=== PATIENT | male | born 1935 | race Caucasian/White ===

== ENCOUNTER 2016-09-14 08:48 | Outpatient (CLI) | payer OTHER ==
[~2016-09-14 08:48] MED LIST: ECOTRIN LOW STR81 MG PO; GLUCOSAMINE1500 COM PO; MSM1500 MG PO; MULTIPLE VITAMIN PO; OMEGA 3340 MG PO; PLAVIX75 MG PO; SIMVASTATIN20 MG PO; TOPROL XL50 MG PO; VITAMIN B12500 MCG PO; VITAMIN D-32000 UNIT PO
--- NOTE | 2016-09-14 11:19 | DIAGNOSTIC IMAGING REPORT ---
PROCEDURE: US ART LOW EXT WITH LYNDSEY-RIGHT INDICATION: Right leg popliteal artery aneurysm, fem-pop bypass graft follow-up. TECHNIQUE: Color Doppler duplex imaging of the right lower extremity arterial system was performed. Resting ABIs were acquired. COMPARISON: 07/29/2014 FINDINGS: ABIs: Resting posterior tibial: 1.2. Resting dorsalis pedis: 1.1. VESSELS/ WAVEFORMS: Triphasic arterial inflow and triphasic flow through the mid superficial femoral artery. Triphasic flow at the ankle. The distal anastomosis of the graft is immediately adjacent to the popliteal artery aneurysm. There is high velocity, biphasic arterial flow at the distal anastomoses and normal velocity, monophasic flow in the popliteal artery and distal to the anastomosis. Partially thrombosed popliteal artery aneurysm measures approximately 5.0 x 5.1 cm in AP and transverse diameter. There is eccentric retrograde biphasic arterial flow within the lumen. The posterior tibial artery in the midcalf is occluded. A prominent collateral with triphasic arterial flow velocity of 32 cm/sec is seen adjacent. PEAK SYSTOLIC VELOCITIES: External iliac: 76 cm/second. Common femoral artery: 53 cm/second. Profunda femoral artery: 30 cm/second. Proximal superficial femoral artery: 61 cm/second. Mid superficial femoral artery: 75 cm/second. Mid to distal SFA just proximal to the graft: 101 cm/sec Proximal anastomosis: 114 cm/sec Proximal graft: 103 cm/sec Mid graft: 110 cm/sec Distal graft: 133 cm/sec Distal anastomosis: 425 cm/sec Popliteal distal to the anastomosis: 119 cm/sec Proximal posterior tibial artery: Occluded, collateral present. Proximal anterior tibial artery 33 cm/sec Peroneal artery: Not seen Distal posterior tibial artery: Reconstituted. 68 cm/second. Dorsalis pedis artery: 69 cm/second. IMPRESSION: 1. Stenotic distal anastomosis of the fem-pop bypass graft. 2. Distal anastomotic stenosis is likely resulting in retrograde biphasic arterial flow within the [place] popliteal artery aneurysm lumen. There has been interval increase in size of partially thrombosed popliteal aneurysm. 3. Distal anastomotic stenosis does not appear to be hemodynamically significant as there is adequate, triphasic arterial two-vessel runoff to the foot. Resting ABIs are normal. 4. 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 This is new since the prior study.
== END 2016-09-14 23:00 ==
LOC: US SRH 08:48
DX: T82.858A Stenosis of other vascular prosthetic devices, implants and grafts, initial encounter (principal); I77.1 Stricture of artery

== ENCOUNTER 2016-10-06 09:58 | Outpatient (CLI) | payer OTHER ==
--- NOTE | 2016-10-06 13:12 | DIAGNOSTIC IMAGING REPORT ---
PROCEDURE: US ART LOW EXT WITH LYNDSEY-RIGHT INDICATION: Fem-pop bypass graft surveillance. TECHNIQUE: Preexercise ABIs were performed. Color Doppler duplex imaging of the right lower extremity was performed. COMPARISON: Arterial duplex ultrasound 09/14/2016. FINDINGS: ABIs: Resting ABIs: Posterior tibial 1.3 and dorsalis pedis 1.3. VESSELS: There is normal triphasic wave form from the common femoral artery to the mid to distal superficial femoral artery Partially thrombosed popliteal artery aneurysm is unchanged and measures 5.1 x 5 cm. Embolization coils are seen in the distal portion of the aneurysm. There is retrograde arterial flow within the lumen, unchanged. Distal graft anastomosis is immediately adjacent to the popliteal artery aneurysm. There is now improved normal triphasic wave form throughout the graft. There is biphasic wave form from the trifurcation to the ankle except for triphasic wave form of the dorsalis pedis artery. RIGHT LOWER EXTREMITY PEAK SYSTOLIC VELOCITIES: Common femoral artery: 68 cm/second. Profunda femoral artery: 31 cm/second. Proximal superficial femoral artery: 83 cm/second. Mid superficial femoral artery: 74 cm/second. Mid to distal superficial femoral artery just proximal to the graft: 81 cm/second. Proximal anastomosis: 134 cm/sec Proximal graft: 166 cm/sec Mid graft: 134 cm/sec Distal graft: 158 cm/sec Distal anastomoses: 184 cm/second Popliteal distal to the anastomosis: 111 cm/sec Proximal posterior tibial artery: 40 cm/second. Proximal anterior tibial artery: 31 cm/second. Peroneal artery: 32 cm/second. Distal posterior tibial artery: 20 cm/second. Dorsalis pedis artery: 70 cm/second. IMPRESSION: 1. Fem-pop bypass graft now with normal triphasic wave form and resolved distal stenosis 2. Stable partially thrombosed popliteal artery aneurysm with coils 3. Normal resting ABIs 4. Velocities suggest high-grade stenosis of the dorsalis pedis artery
== END 2016-10-06 23:00 | disposition home or self-care (01) ==
LOC: US SRH 09:58
DX: I74.3 Embolism and thrombosis of arteries of the lower extremities (principal); I72.4 Aneurysm of artery of lower extremity